=== PATIENT | male | born 1960 | race Caucasian/White ===

== ENCOUNTER 2017-07-14 20:59 | Emergency (ER) | payer OTHER ==
[~2017-07-14] VITALS: Ht 182.9 cm; Wt 113.4 kg
[~2017-07-14 20:59] MED LIST: ATENOLOL 50MG T50 MG; AUGMENTIN 875875 MG PO; CARDIZEM CD180 MG PO; DYRENIUM50 MG; ELIQUIS5 MG PO; FLECAINIDE ACET50 M1 PO; LOVASTATIN 20 M20 MG PO; PROAIR HFA8.5 GM INH; STELARA90 MG/1 ML IM; TRIAMTERENE-HC1 EAC1 PO
[2017-07-14 21:34] LABS: ABSOLUTE BASOPHILS 0.1 thou/uL (0.0-0.2); ABSOLUTE EOSINOPHILS 0.1 thou/uL (0.0-0.7); ABSOLUTE LYMPHOCYTES 1.4 thou/uL (0.8-5.3); ABSOLUTE MONOCYTES 1.3 thou/uL (0.0-1.2); ABSOLUTE NEUTROPHILS 3.9 thou/uL (1.6-8.1); BASOPHILS 0.9 %; HEMATOCRIT 41.7 % (42.0-52.0); HEMOGLOBIN 14.4 gm/dL (14.0-18.0); LYMPHOCYTES 20.6 %; MCH 31.3 pg (26.0-34.0); MCHC 34.5 g/dL (28.0-37.0); MCV 90.7 fL (80.0-100.0); MPV 6.9 fl. (7.2-11.1); NUCLEATED RBCS 0 /100WBC; PLATELET COUNT* 197 thou/uL (150-400); POLYS 58.5 %; RDW-CV 13.1 % (10.5-14.5); WBC 6.6 thou/uL (4.0-11.0)
[2017-07-14 21:43] LABS: ANION GAP 7 mmol/L (7-16); BUN 13 mg/dL (7-18); CALCIUM 8.5 mg/dL (8.5-10.1); CHLORIDE 103 mmol/L (98-107); CO2 28 mmol/L (21-32); CREATININE 0.9 mg/dL (0.6-1.3); GLUCOSE 144 mg/dL (70-99); POTASSIUM 3.9 mmol/L (3.5-5.1); SODIUM 138 mmol/L (136-145)
[2017-07-14 21:53] LABS: ALBUMIN 3.4 g/dL (3.4-5.0); ALKALINE PHOSPHATASE 59 U/L (46-116); NT-PRO BRAIN NAT PEPTIDE 577 pg/mL (<300); SGOT 29 U/L (15-37); SGPT 43 U/L (30-65); TOTAL BILIRUBIN 0.2 mg/dL (<0.1-1.0); TOTAL PROTEIN 7.1 g/dL (6.4-8.2); TROPONIN-I LEVEL <0.06 ng/mL (<0.06)
[2017-07-14 22:01] LABS: INFLUENZA A ANTIGEN None Detected (None Detect); INFLUENZA B ANTIGEN None Detected (None Detect)
[2017-07-14] MEDS ORDERED: PROAIR HFA8.5 GM INH (22:13)
[2017-07-14] MEDS ORDERED: LASIX 20 MG TAB20 MG PO (22:13)
[2017-07-14] MEDS ORDERED: AUGMENTIN 875-1 EACH PO (22:13)
[2017-07-14 22:26] VITALS: BP 121/74
--- NOTE | 2017-07-15 13:50 | EKG ---
[place] [address] ELECTROCARDIOGRAM REPORT Name: JAMES PATEL Room: [facility]#: [id number] Admission: 07/14/17 Attend Phys: Discharge: 07/14/17 Date of : 62 Report #: [id number] THIS REPORT FOR: //name// [facility] ED Test Date: 2017-07-14 Test Time: 21:23:58 Pat Name: JAMES PATEL Department: Room: Gender: M Digital Campaign Manager: MONICA Terry : 1960 Requested By: Dariana Frazier Order Number: [id number] MD: Ilya Arcos Measurements Intervals [place] Rate: 63 P: [place]: QRS: -66 QRSD: 109 T: -4 QT: 412 QTc: 422 Interpretive Statements Atrial fibrillation Abnormal R-wave progression, late transition Inferior infarct, old Baseline wander in lead(s) V1,V2,V4 Compared to ECG 08/26/2015 12:42:48 Myocardial infarct finding now present Sinus rhythm no longer present Right ventricular hypertrophy no longer present Electronically Signed On 07-15-2017 13:50:23 PATTERN CHANGER by Ilya Arcos [email or web address] <ELECTRONICALLY SIGNED> By: Ilya Arcos MD, FACC 07/15/17 1350 22 22 Ilya Arcos MD, FACC /EPI
== END 2017-07-14 22:27 | disposition home or self-care (01) ==
LOC: M.ERS 20:59
PROVIDERS: Emergency Medicine
DX: J06.9 Acute upper respiratory infection, unspecified (principal); I10 Essential (primary) hypertension; E78.00 Pure hypercholesterolemia, unspecified

== ENCOUNTER → 2017-09-20 | Outpatient (CLI) | payer OTHER ==
[~2017-09-20] MED LIST changes: +AUGMENTIN 875-1 EACH PO; +LASIX 20 MG TAB20 MG PO; +MEDROLDOSEPACK PO
--- NOTE | 2017-09-20 15:23 | 2DMMODE ---
[place] [address] 2 D/M-MODE ECHOCARDIOGRAM Name: JAMES PATEL Room: [facility]#: [id number] Admission: 09/20/17 Attend Phys: Miles Issa, Discharge: Date of : 62 Date of Service: 09/20/17 1522 Report #: [id number] THIS REPORT FOR: //name// APPROVED REPORT Study performed: 09/20/2017 14:07:41 EXAM: Comprehensive 2D, Doppler, and color-flow Echocardiogram Patient Location: Out-Patient Status: routine BSA: 2.34 HR: 92 bpm BP: 142/82 mmHg Other Information Study Quality: Good Indications Atrial Fibrillation 2D Dimensions LVEF(%): 70.29 (>50%) IVSd: 11.93 (7-11mm) LVOT Diam: 20.83 (18-24mm) LVDd: 55.76 mm PWd: 11.34 (7-11mm) Ascending Ao: 35.79 (22-36mm) LVDs: 33.33 (25-40mm) Aortic Root: 34.42 mm Ott's LVEF: 70.29 % Volumes Left Atrial Volume (Systole) LA ESV Index: 34.00 mL/m2 Aortic Valve AoV Peak Jose.: 1.19 m/s AO Peak Gr.: 5.62 mmHg LVOT Max P.45 mmHg AO Mean Gr.: 3.38 mmHg LVOT Mean P.10 mmHg LVOT Max V: 1.17 m/s AO V2 VTI: 22.10 cm LVOT Mean V: 0.64 m/s JOSE (VTI): 2.96 cm2 LVOT V1 VTI: 19.21 cm Mitral Valve MV Decel. Time: 127.33 ms MV PHT: 36.93 [place] [address] 2 D/M-MODE ECHOCARDIOGRAM Name: JAMES PATEL Room: [facility]#: [id number] Admission: 09/20/17 Attend Phys: Miles Issa, Discharge: Date of : 62 Date of Service: 09/20/17 1522 Report #: [id number] MVA (PHT): 5.96 cm2 TDI Medial E' Jose.: 0.12 m/s Lateral E' Jose.: 0.13 m/s Pulmonary Valve PV Peak Jose.: 0.94 m/s PV Peak Gr.: 3.50 mmHg Tricuspid Valve TR Peak Gr.: 25.36 mmHg RVSP: 30.36 mmHg Left Ventricle The left ventricle is normal size. There is normal LV segmental wall motion. Mild concentric left ventricular hypertrophy. Left ventricular systolic function is normal. The left ventricular ejection fraction is within the normal range. LVEF is 60-65%. The left ventricular diastolic function is normal. Right Ventricle The right ventricle is normal size. The right ventricular systolic function is normal. Atria Left atrium is mildly dilated. The right atrium size is normal. Aortic Valve The aortic valve is normal in structure. No aortic regurgitation is present. There is no aortic valvular stenosis. Mitral Valve The mitral valve is normal in structure. Trace mitral regurgitation. No evidence of mitral valve stenosis. Tricuspid Valve The tricuspid valve is normal in structure. Mild tricuspid regurgitation. The RVSP is _30.4 mmHg. Pulmonic Valve The pulmonary valve is normal in structure. There is no pulmonic valvular regurgitation. Great Vessels The aortic root is normal in size. IVC is normal in size and collapses with >50% [place] [address] 2 D/M-MODE ECHOCARDIOGRAM Name: JAMES PATEL Room: [facility]#: [id number] Admission: 09/20/17 Attend Phys: Miles Issa, Discharge: Date of : 62 Date of Service: 09/20/17 1522 Report #: [id number] Pericardium There is no pericardial effusion. <Conclusion> LVEF is 60-65%. Mild concentric left ventricular hypertrophy. Left atrium is mildly dilated. <ELECTRONICALLY SIGNED> By: Ildefonso Callahan MD, FACC 09/20/17 1522 1522 1522 Ildefonso Callahan MD, FACC /INF
== END ==
LOC: M.CRD 13:36
DX: I07.1 Rheumatic tricuspid insufficiency (principal); I48.91 Unspecified atrial fibrillation; I48.92 Unspecified atrial flutter

== ENCOUNTER 2017-09-23 03:53 | Emergency (ER) | payer OTHER ==
[~2017-09-23] VITALS: Ht 182.9 cm; Wt 113.4 kg
--- NOTE | ~2017-09-23 | EKG ---
[place] [address] ELECTROCARDIOGRAM REPORT Name: JAMES PATEL Room: [facility]#: [id number] Admission: 09/23/17 Attend Phys: Discharge: 09/23/17 Date of : 62 Report #: [id number] THIS REPORT FOR: //name// [facility] ED Test Date: 2017-09-23 Test Time: 04:34:03 Pat Name: JAMES PATEL Department: Room: Gender: M [employer] : 1960 Requested By: Patrick Solomon Order Number: [id number] Reading MD: Measurements Intervals [place] Rate: 84 P: [place]: QRS: -15 QRSD: 101 T: 17 QT: 389 QTc: 460 Interpretive Statements Atrial fibrillation Borderline left axis deviation RSR' in V1 or V2, probably normal variant Compared to ECG 07/14/2017 21:23:58 RSR' in V1 or V2 now present Myocardial infarct finding no longer present [email or web address] By: [id number] Epiphany EpiphanyMD /EPI
[~2017-09-23 03:53] MED LIST changes: -MEDROLDOSEPACK PO
[2017-09-23] MEDS ORDERED: MEDROLDOSEPACK PO (05:32)
[2017-09-23 05:45] VITALS: BP 150/91
== END 2017-09-23 05:49 | disposition home or self-care (01) ==
LOC: M.ERS 03:53
DX: T78.49XA Other allergy, initial encounter (principal); I10 Essential (primary) hypertension; E78.00 Pure hypercholesterolemia, unspecified; X58.XXXA Exposure to other specified factors, initial encounter

== ENCOUNTER → 2017-09-23 | Outpatient (CLI) | payer OTHER ==
[2017-09-23 14:03] LABS: HEMATOCRIT 44.8 % (42.0-52.0); HEMOGLOBIN 15.3 gm/dL (14.0-18.0); MCH 30.8 pg (26.0-34.0); MCHC 34.2 g/dL (28.0-37.0); MPV 6.8 fl. (7.2-11.1); NUCLEATED RBCS 0 /100WBC; PLATELET COUNT* 246 thou/uL (150-400); RBC 4.97 mil/uL (4.50-6.00); RDW-CV 12.8 % (10.5-14.5); WBC 8.4 thou/uL (4.0-11.0)
[2017-09-23 14:16] LABS: ALBUMIN 3.7 g/dL (3.4-5.0); CALCIUM 8.9 mg/dL (8.5-10.1); CREATININE 1.2 mg/dL (0.6-1.3); DIRECT BILIRUBIN 0.1 mg/dL (<0.1-0.3); POTASSIUM 4.1 mmol/L (3.5-5.1); TOTAL BILIRUBIN 0.3 mg/dL (<0.1-1.0); TOTAL PROTEIN 7.8 g/dL (6.4-8.2)
[2017-09-23 14:32] LABS: ALBUMIN 3.7 g/dL (3.4-5.0); CALCIUM 8.8 mg/dL (8.5-10.1); CREATININE 1.2 mg/dL (0.6-1.3); PHOSPHORUS* 3.4 mg/dL (2.5-4.9); POTASSIUM 4.1 mmol/L (3.5-5.1)
[2017-09-23 14:44] LABS: ABSOLUTE EOSINOPHILS 0.1 thou/uL (0.0-0.7); ABSOLUTE LYMPHOCYTES 0.8 thou/uL (0.8-5.3); ABSOLUTE MONOCYTES 0.1 thou/uL (0.0-1.2); ABSOLUTE NEUTROPHILS 7.5 thou/uL (1.6-8.1)
[2017-09-23 14:45] LABS: PLATELET ESTIMATE ADEQUATE
== END ==
LOC: M.LAB 13:46
PROVIDERS: Internal Medicine Cardiovascular Disease
DX: I48.92 Unspecified atrial flutter (principal); I10 Essential (primary) hypertension; L40.0 Psoriasis vulgaris; Z79.899 Other long term (current) drug therapy; Z79.01 Long term (current) use of anticoagulants

== ENCOUNTER → 2018-10-03 | Outpatient (CLI) | payer OTHER ==
[~2018-10-03] MED LIST changes: +MEDROLDOSEPACK PO
[2018-10-03 13:50] LABS: HEMATOCRIT 43.3 % (42.0-52.0); HEMOGLOBIN 14.8 gm/dL (14.0-18.0); MCH 30.4 pg (26.0-34.0); MCHC 34.1 g/dL (28.0-37.0); MCV 89.1 fL (80.0-100.0); MPV 6.6 fl. (7.2-11.1); NUCLEATED RBCS 0 /100WBC; PLATELET COUNT* 240 thou/uL (150-400); RBC 4.85 mil/uL (4.50-6.00); RDW-CV 13.2 % (10.5-14.5); WBC 9.8 thou/uL (4.0-11.0)
[2018-10-03 14:01] LABS: ALBUMIN 3.6 g/dL (3.4-5.0); ALKALINE PHOSPHATASE 54 U/L (46-116); ANION GAP 8 mmol/L (7-16); BUN 15 mg/dL (7-18); CALCIUM 8.9 mg/dL (8.5-10.1); CHLORIDE 103 mmol/L (98-107); CHOLESTEROL 172 mg/dL (<200); CO2 29 mmol/L (21-32); DIRECT BILIRUBIN < 0.1 mg/dL (<0.1-0.3); GLUCOSE 102 mg/dL (70-99); HDL CHOLESTEROL 48 mg/dL (>40); LDL CHOLESTEROL 102 mg/dL (<100); PHOSPHORUS* 3.2 mg/dL (2.5-4.9); POTASSIUM 4.1 mmol/L (3.5-5.1); SGOT 15 U/L (15-37); SGPT 36 U/L (30-65); SODIUM 140 mmol/L (136-145); TC:HDL 3.6 Ratio (Not establshd); TOTAL BILIRUBIN 0.3 mg/dL (<0.1-1.0); TOTAL PROTEIN 7.7 g/dL (6.4-8.2); TRIGLYCERIDE 112 mg/dL (<150); VLDL 22 mg/dL (<40)
[2018-10-03 14:12] LABS: ABSOLUTE BASOPHILS 0.1 thou/uL (0.0-0.2); ABSOLUTE LYMPHOCYTES 3.6 thou/uL (0.8-5.3); ABSOLUTE MONOCYTES 0.2 thou/uL (0.0-1.2); ABSOLUTE NEUTROPHILS 5.9 thou/uL (1.6-8.1); ATYPICAL LYMPHS 5 %; PLATELET ESTIMATE ADEQUATE
[2018-10-03 14:22] LABS: SERUM ASSESSMENT Clear
== END ==
LOC: M.LAB 13:32
PROVIDERS: Internal Medicine Cardiovascular Disease
DX: E78.00 Pure hypercholesterolemia, unspecified (principal)

== ENCOUNTER → 2019-10-03 | Outpatient (CLI) | payer OTHER ==
[2019-10-03 12:48] LABS: ALBUMIN 3.7 g/dL (3.4-5.0); ALKALINE PHOSPHATASE 65 U/L (46-116); CHOLESTEROL 115 mg/dL (<200); DIRECT BILIRUBIN 0.1 mg/dL (<0.1-0.3); HDL CHOLESTEROL 40 mg/dL (>40); LDL CHOLESTEROL 60 mg/dL (<100); SERUM ASSESSMENT Clear; SGOT 16 U/L (15-37); SGPT 28 U/L (30-65); TC:HDL 2.9 Ratio (Not establshd); TOTAL BILIRUBIN 0.3 mg/dL (<0.1-1.0); TOTAL PROTEIN 7.2 g/dL (6.4-8.2); TRIGLYCERIDE 76 mg/dL (<150); VLDL 15 mg/dL (<40)
== END ==
LOC: M.LAB 12:08
PROVIDERS: Internal Medicine Cardiovascular Disease
DX: E78.00 Pure hypercholesterolemia, unspecified (principal)

== ENCOUNTER → 2020-04-16 | Outpatient (CLI) | payer OTHER ==
[2020-04-16 09:04] LABS: CALCIUM 8.7 mg/dL (8.5-10.1); CREATININE 0.9 mg/dL (0.6-1.3); POTASSIUM 4.1 mmol/L (3.5-5.1)
--- NOTE | 2020-04-16 20:20 | 2DMMODE ---
[place] [address] 2 D/M-MODE ECHOCARDIOGRAM Name: JAMES PATEL Room: [facility]#: [id number] Admission: 04/16/20 Attend Phys: Tracy Alves RN Discharge: Date of : 62 Date of Service: 04/16/202019 Report #: [id number] THIS REPORT FOR: cc: FAM - No family physician/PCP FAM - No family physician/PCP Ilya Arcos MD [facility] ~ APPROVED REPORT Study performed: 04/16/2020 07:48:33 EXAM: Comprehensive 2D, Doppler, and color-flow Echocardiogram Patient Location: Out-Patient BSA: 2.37 HR: 68 bpm BP: 130/75 mmHg Other Information Study Quality: Good Indications Atrial Fibrillation Dyspnea 2D Dimensions IVSd: 13.81 (7-11mm) LVOT Diam: 20.43 (18-24mm) LVDd: 47.74 mm PWd: 13.16 (7-11mm) Ascending Ao: 36.52 (22-36mm) LVDs: 34.34 (25-40mm) Aortic Root: 37.45 mm Volumes Left Atrial Volume (Systole) LA ESV Index: 30.00 mL/m2 Aortic Valve AoV Peak Jose.: 1.09 m/s AO Peak Gr.: 4.73 mmHg LVOT Max P.57 mmHg AO Mean Gr.: 2.40 mmHg LVOT Mean P.66 mmHg LVOT Max V: 0.94 m/s AO V2 VTI: 18.13 cm LVOT Mean V: 0.58 m/s JOSE (VTI): 3.38 cm2 LVOT V1 VTI: 18.68 [place] [address] 2 D/M-MODE ECHOCARDIOGRAM Name: JAMES PATEL [facility] Room: [facility]#: [id number] Admission: 04/16/20 Attend Phys: Tracy Alves RN Discharge: Date of : 62 Date of Service: 04/16/202019 Report #: [id number] MV Decel. Time: 161.61 ms MV E Max Jose.: 0.88 m/s MV PHT: 46.87 ms MVA (PHT): 4.69 cm2 TDI E/Lateral E': 8.00 E/Medial E': 8.80 Medial E' Jose.: 0.10 m/s Lateral E' Jose.: 0.11 m/s Pulmonary Valve PV Peak Jose.: 0.78 m/s PV Peak Gr.: 2.45 mmHg Tricuspid Valve RAP Estimate: 5.00 mmHg TR Peak Gr.: 23.90 mmHg RVSP: 28.90 mmHg PA Pressure: 28.90 mmHg Left Ventricle The left ventricle is normal size. There is normal LV segmental wall motion. Mild concentric left ventricular hypertrophy. Left ventricular systolic function is normal. LVEF is 60-65%. This study is not technically sufficient to allow evaluation of the LV diastolic function due to atrial fibrillation. Right Ventricle The right ventricle is normal size. The right ventricular systolic function is normal. Atria Left atrium is moderately dilated. Right atrium is moderately dilated. Aortic Valve The aortic valve is normal in structure. No aortic regurgitation is present. There is no aortic valvular stenosis. Mitral Valve The mitral valve is normal in structure. There is no mitral valve regurgitation noted. No evidence of mitral valve stenosis. Tricuspid Valve The tricuspid valve is normal in structure. Mild tricuspid regurgitation. No pulmonary hypertension[place] [address] 2 D/M-MODE ECHOCARDIOGRAM Name: FAVIOSANDYJAMES Espinoza [facility] Room: [facility]#: [id number] Admission: 04/16/20 Attend Phys: Tracy Alves RN Discharge: Date of : 62 Date of Service: 04/16/202019 Report #: [id number] The pulmonary valve is normal in structure. There is no pulmonic valvular regurgitation. Great Vessels The aortic root is normal in size. IVC is normal in size and collapses >50% with inspiration. Pericardium There is no pericardial effusion. <Conclusion> The left ventricle is normal size. Mild concentric left ventricular hypertrophy. Left ventricular systolic function is normal. LVEF is 60-65%. Left atrium is moderately dilated. Right atrium is moderately dilated. Mild tricuspid regurgitation. No pulmonary hypertension. IVC is normal in size and collapses >50% with inspiration. <ELECTRONICALLY SIGNED> By: Ilya Arcos MD, FACC 04/16/202019 19 19 Ilya Arcos MD, FACC /INF
== END ==
LOC: M.CRD 07:44 → M.LAB 07:44 → M.CRD 08:00
PROVIDERS: ATTEND Registered Nurse
DX: I07.1 Rheumatic tricuspid insufficiency (principal); R60.0 Localized edema

== ENCOUNTER → 2021-02-17 | Outpatient (CLI) | payer OTHER | LOC: M.LAB 10:55 | PROVIDERS: ATTEND Internal Medicine | DX: Z01.812 Encounter for preprocedural laboratory examination (principal); Z20.822 Contact with and (suspected) exposure to COVID-19 ==